=== PATIENT | male | born 1960 | race Hispanic/Latino ===

== ENCOUNTER 2017-10-21 06:12 | Day surgery (SDC) | payer BC ==
[2017-10-20 09:25] VITALS: BMI 31.6
[~2017-10-21 06:12] MED LIST: Cyclopentolate 1% Opth Drop 2 ML BOT FS SCH; EPINEPHrine 0.3 MG, Dextrose 50% 3 ML in Ophthalmic Irrigation Solution 500 ML FS SCH; Phenylephrine 2.5% Ophth Soln 5 ML BOT FS SCH
[2017-10-21] MEDS ORDERED: Lidocaine 2% 10 ML INJ ONE ×2 (06:14→08:08)
[2017-10-21] MEDS ORDERED: Fentanyl 100 MCG/2 ML VIAL ONE ×2 (06:14→08:01)
[2017-10-21] MEDS ORDERED: Midazolam HCl 2 mg/2 ml Vial ONE ×2 (06:14→08:01)
[2017-10-21] MEDS ORDERED: PROPOFOL 20 ML ONE ×2 (06:14→08:08)
[2017-10-21] MEDS ORDERED: Cyclopentolate 1% Opth Drop 2 ML BOT ONE (06:59)
[2017-10-21] MEDS ORDERED: Phenylephrine 2.5% Ophth Soln 5 ML BOT ONE (07:00)
--- NOTE | 2017-10-21 11:07 | OP ---
DATE OF PROCEDURE: 10/21/2017 PREOPERATIVE DIAGNOSIS: Tractional retinal detachment, right eye. POSTOPERATIVE DIAGNOSIS: Tractional retinal detachment, right eye. PROCEDURE: Pars plana vitrectomy, tractional retinal detachment repair, right eye. SURGEON: Eyal Brown M.D. ANESTHESIA: Local with monitored anesthesia care. PROCEDURE IN DETAIL: The patient was identified in the preoperative holding area. Appropriate infor med consent for the planned surgical procedure on the right eye had been obtained. The patient was t ransported to the operative suite where appropriate cardiopulmonary monitoring established. Local an esthesia obtained using retrobulbar and modified Van Lint lid block using 50:50 mixture of 4% lidocai ne, 0.75% bupivacaine. The patient was prepped and draped in the usual sterile manner for ophthalmic surgery on the right eye. Lid speculum was placed in the right eye. The 25-gauge trocars were plac ed in conjunctiva and sclera supratemporally, inferotemporally and supranasally. Infusion line was p laced inferotemporally. Light pipe and vitreous cutter were inserted into the eye. Core vitrectomy was performed. Tractional elements were identified on the nerve surrounding the nerve and supratempo ral periphery. These were dissected free of the retina and peeled without complications. No retinal holes were identified. Panretinal photocoagulation was placed in all non-macular areas of the retin a. No further bleeding and no holes or tears were identified. Trocars were removed and eye was note d to retain pressure well. Retrobulbar Kenalog and subconjunctival Ancef were placed. Atropine and antibiotic ointment placed and the eye was patched and shielded. The patient was taken to the postop erative care unit in good condition having suffered no immediate perioperative complications. DISCHARGE INSTRUCTIONS: The patient was instructed to keep patch and shield on, avoid lifting or daria ding and follow up in the morning with Dr. Brown.
== END 2017-10-21 09:40 | disposition home or self-care (01) ==
LOC: SDC 06:12
PROVIDERS: ATTEND Ophthalmology Retina Specialist
PROC: 08T43ZZ Resection of Right Vitreous, Percutaneous Approach (ICD-10-PCS; principal; 2017-10-21)
PROC: 08NE3ZZ Release Right Retina, Percutaneous Approach (ICD-10-PCS; principal; 2017-10-21)
PROC: 085E3ZZ Destruction of Right Retina, Percutaneous Approach (ICD-10-PCS; principal; 2017-10-21)
DX: H33.41 Traction detachment of retina, right eye (principal); E11.9 Type 2 diabetes mellitus without complications; Z79.82 Long term (current) use of aspirin; Z79.4 Long term (current) use of insulin; Z79.899 Other long term (current) drug therapy
CPT/HCPCS: 36416; 67025; J0171; J2250; J2704; J3010